=== PATIENT | female | born 1970 | race Caucasian/White ===

== ENCOUNTER → 2017-01-10 | Outpatient (CLI) | payer OTHER | LOC: FIMAGING 14:05 | PROVIDERS: ATTEND Family Medicine | DX: Z12.31 Encounter for screening mammogram for malignant neoplasm of breast (principal); N92.4 Excessive bleeding in the premenopausal period; N94.6 Dysmenorrhea, unspecified; N85.8 Other specified noninflammatory disorders of uterus; N83.202 Unspecified ovarian cyst, left side | CPT/HCPCS: G0202 ==

== ENCOUNTER → 2017-04-17 | Outpatient (CLI) | payer OTHER | LOC: FIMAGING 08:44 | PROVIDERS: ATTEND Family Medicine | DX: D25.9 Leiomyoma of uterus, unspecified (principal); N92.1 Excessive and frequent menstruation with irregular cycle; N83.202 Unspecified ovarian cyst, left side ==